=== PATIENT | female | born 1985 | race Caucasian/White ===

== ENCOUNTER 2024-07-28 08:02 | Emergency (ER) | payer BC, SELFPAY ==
--- NOTE | ~2024-07-28 | XR_ITS ---
EXAMINATION: XR chest 2V DATE: 07/28/2024 08:35 INDICATION: Cough and fever. TECHNIQUE: Frontal and lateral views of the chest were obtained. COMPARISON: None. FINDINGS: There are airspace opacities in right lower lung zone and left mid and lower lung zones. No pleural effusion or pneumothorax. The heart size is normal. IMPRESSION: 1. Airspace opacities in right lower lung zone and left mid and lower lung zones, consistent with pne umonia. Reviewed, dictated and finalized at location A. S ORDER COORDINATOR IMPRESSION: 1. Airspace opacities in right lower lung zone and left mid and lower lung zone s, consistent with pneumonia.
--- NOTE | 2024-07-28 08:12 | ED_ITS ---
HPI - URI/Sore Throat General Chief Complaint: Upper Respiratory Infection Stated Complaint: pneumonia Time Seen by Provider: 07/28/24 08:17 Source: patient Mode of arrival: ambulatory Limitations: no limitations History of Present Illness HPI Narrative: 39 Year old female with a history of lupus presented for complaint of cough, fever, fatigue and body aches. Onset 2 days. Endorses temp up to 101.7 at home. Reports occasional shortness of breath with exertion and wheezing. Taking Tylenol for symptoms. Denies nausea, vomiting, diarrhea. Endorses exposure to pneumonia from her son. Related Data Home Medications Medication Instructions Recorded Confirmed cholecalciferol (vitamin D3) 100 100 mcg PO DAILY 02/25/21 07/28/24 mcg (4,000 unit) tablet multivitamin 1 tablet PO DAILY 02/25/21 07/28/24 omega-3 fatty acids 1,000 mg 1,000 mg PO DAILY 02/25/21 07/28/24 capsule Allergies Allergy/AdvReac Type Severity Reaction Status Date / Time Penicillins Allergy Mild Rash Verified 07/28/24 08:16 Review of Systems Review of Systems: CONSTITUTIONAL: reports fever, chills EYES: Denies visual changes, redness, or discharge. ENT: Denies rhinorrhea, congestion, sore throat, or otalgia. CARDIOVASCULAR: Denies chest pain, palpitations, or edema. RESPIRATORY: Reports cough, sob, wheezing. GASTROINTESTINAL: Denies abdominal pain, nausea, vomiting, or diarrhea. SKIN: Denies rash, itching, or wounds. MUSCULOSKELETAL: Denies back pain, joint pain NEUROLOGIC: Reports headache All systems reviewed & are unremarkable except as noted in HPI and below PMFSH Past Medical History Medical History Adult BMI 45.0-49.9 kg/sq m Lupus Surgical History Surgical History Delivery by section H/O adenoidectomy H/O sinus surgery History of repair of ACL Hx of tonsillectomy Family History Family History Father Hypertension Diabetes mellitus Depression Heart problem Grandparent Diabetes mellitus Cancer Social History Social History Smoking status: Never smoker Tobacco type: cigarettes Second hand tobacco smoke exposure: No Alcohol intake: current Drinks per week: 1 Alcohol use details: beer, liqour, wine Substance use: never Substance use type: does not use Living arrangements: with family Comments At time of signature, I have reviewed and agree with nursing past medical, surgi jaida, social and family history unless otherwise noted. Please see nursing chart for further information. There is no relevant family history pertinent to the presenting complaint Exam Narrative: GENERAL: Mildly ill-appearing, in no acute distress. EYES: EOMI. No redness or drainage. Conjunctivae normal. ENT: Mucous membranes pink and moist. No rhinorrhea. TMs normal bilaterally. Throat normal. Uvula midline. CHEST: No respiratory distress. Lungs clear to all murguia; diminished bases HEART: Regular rate and rhythm. No murmur appreciated. ABDOMEN: Soft, nontender, nondistended, normal active bowel sounds. SKIN: Warm, dry, no rash. Capillary refill normal. Normal skin turgor. NEURO: Alert and oriented x3. Gait steady. PSYCH: Normal affect. Course Course Emergency Course: Patient is aware of diagnosis, understands and agrees to treatment plan. Anticipatory guidance given. Patient agrees to follow-up as directed and is aware of reasons to seek care at the emergency department. Portions of this record may have been created with voice recognition software Level of Care: Express Care Visit Vital Signs Vital signs: Vital Signs Temperature 98.9 F 07/28/24 08:15 Pulse Rate 105 H 07/28/24 08:15 Respiratory Rate 16 07/28/24 08:15 Blood Pressure 122/79 07/28/24 08:15 Pulse Oximetry 98 07/28/24 08:15 Oxygen Delivery Room Air 07/28/24 08:15 Temperature 98.9 F 07/28/24 08:17 Pulse Rate 105 H 07/28/24 08:17 Respiratory Rate 16 07/28/24 08:17 Blood Pressure 122/79 07/28/24 08:17 Pulse Oximetry 98 07/28/24 08:17 Oxygen Delivery Room Air 07/28/24 08:17 MDM - URI/Sore Throat MDM Narrative Medical decision making narrative: Discussed physical exam findings, COVID and flu result. Review chest x-ray bilateral pna; allergy to PCN and taking hydroxychloroquine which may prolong QT with azithromyin; rx sent for doxycycline.. Advised supportive measures and signs/symptoms to go to the ER. Pt is appropriate for outpt treatment and f/u. Differential Diagnosis Differential diagnosis: Likely upper respiratory infection, sinusitis, viral infection, bronchitis and other (pneumonia) Lab Data Labs: Lab Results 07/28/24 Range/Units 08:40 POC Influenza A Ag Negative (Negative) POC Influenza B Ag Negative (Negative) POC SARS CoV-2 Ag Negative (Negative) Imaging Data Radiologist's impression: Patient: Emely Lynch : 1985 MR#: [id number] Age: 39 Acct:[id number] Loc: [facility] ADM Date: 07/28/24Attending Dr: Ordering Physician: Lachelle Chapin APRN Date of Service: 07/28/24 Procedure(s): XR chest 2V Accession Number(s): [id number] cc: Lachelle Chapin APRN; Kee Cowan MD~ EXAMINATION: XR chest 2V DATE: 07/28/2024 08:35 INDICATION: Cough and fever. TECHNIQUE: Frontal and lateral views of the chest were obtained. COMPARISON: None. FINDINGS: There are airspace opacities in right lower lung zone and left mid and lower lung zones. No pleural effusion or pneumothorax. The heart size is normal. IMPRESSION: 1. Airspace opacities in right lower lung zone and left mid and lower lung zones, consistent with pneumonia. Discharge Plan Discharge Clinical Impression: Pneumonia Qualifiers: Pneumonia type: due to unspecified organism Laterality: bilateral Lung location: unspecified part of lung Qualified Code(s): J18.9 - Pneumonia, unspecified organism Patient Disposition: Home, Self-Care Condition: Stable Instructions: Antibiotic Form, Pneumonia (ED) Additional Instructions: Pneumonia is a lung infection that can cause a fever, cough, and trouble breathing. How it spreads: When someone with bacterial pneumonia coughs, sneezes, or talks, they release respiratory droplets into the air that can be inhaled by others.?You can also get pneumonia by touching a contaminated surface or object and then touching your mouth or nose. You're generally contagious for around 48 hours after starting antibiotics and your fever goes away.? To prevent the spread of pneumonia, you can:? ? Get vaccinated? ? Wash your hands often with soap and water for 20 seconds? ? Cover your mouth with a tissue when you cough or sneeze? ? Avoid people who are already sick with pneumonia? ? Stay home when you have pneumonia Take antibiotics as directed until complete. eat small frequent meals. Get lots of rest and drink fluids. Alternate Tylenol and ibuprofen for pain/fever [id number] cough medication can cause drowsiness, take according to package directions If you have nasal congestion, you can take Zyrtec, Claritin along with Flonase spray Call your Primary Care Doctor and make a follow-up appointment in 3 days. Go to the ER for worsening symptoms or concerns Prescriptions: New methylprednisolone [Medrol (Lee)] 4 mg tablets,dose pack See Rx Instructions .ROUTE .COMPLEX Qty: 21 0RF Rx Instructions: orally per package directions doxycycline hyclate 100 mg tablet 100 mg PO BID 7 Days Qty: 14 0RF No Action multivitamin Tablet 1 tablet PO DAILY cholecalciferol (vitamin D3) 100 mcg (4,000 unit) tablet 100 mcg PO DAILY omega-3 fatty acids 1,000 mg capsule 1,000 mg PO DAILY hydroxychloroquine 200 mg tablet 400 mg PO DAILY Qty: 180 1RF Rx Instructions: rheum Follow-up/Referrals: Kee Cowan MD [Primary Care Provider] - Stand Alone Forms: Work/School Release IP
[2024-07-28 08:15] VITALS: BP 122/79; PULSE 105; RESP 16; TEMP 37.2; O2SAT 98
[2024-07-28 08:17] VITALS: BP 122/79; PULSE 105; RESP 16; TEMP 37.2; O2SAT 98
[2024-07-28 08:42] LABS: EDCOVIDSCREEN Negative (Negative); EDINFLUASCREEN Negative (Negative); EDINFLUBSCREEN Negative (Negative)
== END 2024-07-28 08:57 | disposition home or self-care (01) ==
PROVIDERS: Emergency Provider Nurse Practitioner Family; PCP Family Medicine
DX: J18.9 Pneumonia, unspecified organism (principal); Z20.822 Contact with and (suspected) exposure to COVID-19; M32.9 Systemic lupus erythematosus, unspecified
CPT/HCPCS: 71046; 87426; 87804; 99213; G0463